=== PATIENT | female | born 1995 | race Caucasian/White ===

== ENCOUNTER 2016-04-26 10:28 | Emergency (ER) | payer SELFPAY ==
[2016-04-26 10:41] VITALS: O2SAT 98
--- NOTE | 2016-04-26 11:21 | ED.PDOC ---
History of Present Illness - General Chief Complaint: ENT Problem Stated Complaint: facial swelling, sore throat Time Seen by Provider: 04/26/16 11:18 Source: patient, RN notes reviewed, Vital Signs reviewed Exam Limitations: no limitations - History of Present Illness Initial Comments: This 21 y/o female was diagnosed with [place] 2 weeks ago. She had been feeling ok until 2 days ago when she started having some back pain and felt feverish again. She was fine yesterday, but woke up today with a sore throat, tonsils swollen, and feverish. She went back to work 4 days ago. Timing/Duration: unsure Severity: moderate Improving Factors: nothing Worsening Factors: eating Associated Symptoms: fever/chills, malaise Allergies/Adverse Reactions: Allergies NO KNOWN ALLERGY Allergy (Verified 04/26/16 10:41) Home Medications: Ambulatory Orders NK [NK] 04/26/16 Review of Systems - Review of Systems Constitutional: States: chills, fever, malaise, weakness EENTM: States: nose congestion, throat pain, throat swelling Respiratory: States: no symptoms reported Cardiology: States: no symptoms reported Gastrointestinal/Abdominal: States: abdominal pain - mild LUQ Genitourinary: States: no symptoms reported Musculoskeletal: States: no symptoms reported Skin: States: no symptoms reported Neurological: States: no symptoms reported Endocrine: States: no symptoms reported Hematologic/Lymphatic: States: no symptoms reported Past Medical History (General) - Patient Medical History Hx Stroke: No Hx Asthma: No Hx Congestive Heart Failure: No Hx Hypertension: No Hx Diabetes: No Hx MRSA: No Surgical History: no surgical history - Vaccination History Hx Influenza Vaccination: No Hx Pneumococcal Vaccination: No - Social History Hx Tobacco Use: No Hx Alcohol Use: No Hx Substance Use: No Hx Substance Use Treatment: No Hx Depression: No - Female History Patient is a Female of Child Bearing Age (10 -59 yrs old): Yes Patient : No Family Medical History - Family History Mother Family History: No Known Living Status: Still Living Physical Exam - Physical Exam General Appearance: Alert, Comfortable, Other - Mild distress Eye Exam: bilateral normal Ears, Nose, Throat: hearing grossly normal, normal ENT inspection, nasal congestion, pharyngeal erythema, tonsillar exudate, tonsillar swelling Neck: non-tender, full range of motion, supple, lymphadenopathy (R), lymphadenopathy (L) Respiratory: chest non-tender, lungs clear, normal breath sounds, no respiratory distress Cardiovascular/Chest: normal peripheral pulses, regular rate, rhythm, no edema, no murmur Gastrointestinal/Abdominal: normal bowel sounds, soft, tenderness - Mild tenderness in the LUQ, spleenomegaly - Mild Extremity: normal range of motion, non-tender, normal inspection, no pedal edema Neurologic: no motor/sensory deficits, alert, normal mood/affect, oriented x 3 Skin Exam: normal color, warm/dry Progress - Results/Orders Results/Orders: 04/26/16 10:35 Temperature 99.5 F Pulse Rate [ 98 H Left Radial] Respiratory 18 Rate Blood Pressure 119/79 [Left Arm] O2 Sat by Pulse 98 Oximetry 04/26/16 10:43 STREP SCREEN [GROUP A STREP SCREEN, RAPID] Stat Laboratory Results Group A Strep Rapid Negative (NEGATIVE) 04/26/16 10:43 Departure - Departure Clinical Impression: Mononucleosis syndrome Time of Disposition: 11:36 Disposition: Discharge to Home or Self Care Condition: Excellent Departure Forms: ED Discharge - Pt. Copy, Patient Portal Self Enrollment Instructions: DI for Mononucleosis-Adult, Mononucleosis Diet: resume usual diet Home Medications: Ambulatory Orders NK [NK] 04/26/16 Additional Instructions: Follow up if symptoms persist or worsen. No work until 04/30/2016.
[2016-04-26 11:55] VITALS: BP 102/67; TEMP 98.4
== END 2016-04-26 11:55 | disposition home or self-care (01) ==
LOC: ER 10:28
DX: B27.90 Infectious mononucleosis, unspecified without complication (principal)

== ENCOUNTER 2017-03-25 16:25 | Emergency (ER) | payer BC ==
[2017-03-25 16:38] VITALS: TEMP 97.9
[2017-03-25] MEDS ORDERED: AMOXICILLIN & POT CLAVULANATE 875 MG TAB PO ONE (18:03)
--- NOTE | 2017-03-25 18:07 | ED.PDOC ---
History of Present Illness - General Chief Complaint: ENT Problem Time Seen by Provider: 03/25/17 16:32 Source: patient Exam Limitations: no limitations - History of Present Illness Initial Comments: 2 D SORE THROAT. Timing/Duration: abrupt Severity: severe EENT Location: throat Prearrival Treatment: over the counter meds Improving Factors: nothing Allergies/Adverse Reactions: Allergies NO KNOWN ALLERGY Allergy (Verified 04/26/16 10:41) Home Medications: Ambulatory Orders Amoxicillin & Pot Clavulanate [Augmentin] 875 mg PO BID #14 tab 03/25/17 Review of Systems - Review of Systems Constitutional: Denies: chills, diaphoresis, fever EENTM: States: throat pain. Denies: ear pain, nose congestion, mouth pain Respiratory: Denies: cough, short of breath Cardiology: States: no symptoms reported Gastrointestinal/Abdominal: States: no symptoms reported Genitourinary: States: no symptoms reported Musculoskeletal: States: no symptoms reported Skin: States: no symptoms reported Neurological: States: no symptoms reported Endocrine: States: no symptoms reported Hematologic/Lymphatic: States: no symptoms reported All other Systems: Reviewed and Negative Past Medical History (General) - Patient Medical History Hx Seizures: No Hx Stroke: No Hx Asthma: No Hx Cardiac Disorders: No Hx Congestive Heart Failure: No Hx Hypertension: No Hx Diabetes: No Hx MRSA: No Surgical History: no surgical history - Vaccination History Hx Influenza Vaccination: No Hx Pneumococcal Vaccination: No - Social History Hx Tobacco Use: No Hx Alcohol Use: No Hx Substance Use: No Hx Substance Use Treatment: No Hx Depression: No - Female History Patient : No Family Medical History - Family History Mother Family History: No Known Living Status: Still Living Physical Exam - Physical Exam General Appearance: Alert, Well Hydrated Eye Exam: bilateral normal Ear Exam: bilateral ear: auricle normal, canal normal, TM normal Nasal Exam: normal inspection Throat Exam: tonsillar exudate, tonsillar swelling Neck: full range of motion, supple, lymphadenopathy (L) Cardiovascular/Respiratory: regular rate, rhythm, no M/R/G, normal breath sounds , no respiratory distress Abdominal Exam: non-tender Neurologic: alert, normal mood/affect Skin Exam: normal color, warm/dry Progress - Results/Orders Results/Orders: RAPID STREP NEG. I THINK IT IS A FALSE NEG RESULT BECAUSE PT HAS 3/4 CENTOR CRITERIA: POS LAD, POS TONSILAR ENLARGEMENT AND EXUDATES, ABSENCE OF COUGH. SHE HAS NO OTHER URI SX OTHER THAN TONSILAR PAIN, SO IT DOES NOT FIT PICTURE OF VIRAL URI. THUS I RX'D AUGMENTING X 7 D. Departure - Departure Clinical Impression: Streptococcal pharyngitis, Sore throat Disposition: Discharge to Home or Self Care Condition: Good Departure Forms: ED Discharge - Pt. Copy, Patient Portal Self Enrollment, Work Release Form Instructions: DI for Strep Throat Diet: resume usual diet Activity: increase activity as tolerated Referrals: JOANNA RODRIGUEZ IV, STAFF ASSISTANT [Primary Care Provider] - 1-2 Weeks Prescriptions: Amoxicillin & Pot Clavulanate [Augmentin] 875 mg PO BID #14 tab Home Medications: Ambulatory Orders Amoxicillin & Pot Clavulanate [Augmentin] 875 mg PO BID #14 tab 03/25/17
[2017-03-25 18:22] VITALS: BP 100/63; O2SAT 95
== END 2017-03-25 18:19 | disposition home or self-care (01) ==
LOC: ER 16:25
DX: J02.0 Streptococcal pharyngitis (principal)

== ENCOUNTER 2020-01-11 20:45 | Emergency (ER) | payer SELFPAY ==
--- NOTE | 2020-01-11 21:09 | ED.PDOC ---
History of Present Illness - General Time Seen by Provider: 01/11/20 20:48 - History of Present Illness Initial Comments: 24 female comes in with one day of vaginal bleeding and cramping. states one month ago got depo shot. Today noticed some bleeding. took a te st and thought it looked "slightly" positive, but wasn't sure. No nausea/vomiting. no diarrhea or constipation. no black or bloody bm. no dizziness, shortness of breath or chest pain. no fevers. Allergies/Adverse Reactions: Allergies NO KNOWN ALLERGY Allergy (Verified 04/26/16 10:41) Review of Systems - Review of Systems Constitutional: Denies: chills, fever EENTM: Denies: blurred vision, throat pain, mouth pain Respiratory: Denies: cough, short of breath Cardiology: Denies: chest pain, palpitations Gastrointestinal/Abdominal: States: abdominal pain. Denies: diarrhea, nausea, vomiting Genitourinary: States: see HPI Musculoskeletal: Denies: back pain, muscle pain Neurological: Denies: headache, numbness, paresthesia, tingling, tremors, weakne ss Hematologic/Lymphatic: Denies: blood clots, easy bleeding, easy bruising Past Medical History (General) - Patient Medical History Hx Seizures: No Hx Stroke: No Hx Asthma: No Hx Cardiac Disorders: No Hx Congestive Heart Failure: No Hx Hypertension: No Hx Diabetes: No Hx MRSA: No - Vaccination History Hx Influenza Vaccination: No Hx Pneumococcal Vaccination: No - Social History Hx Tobacco Use: No Hx Alcohol Use: No Hx Substance Use: No Hx Substance Use Treatment: No Hx Depression: No - Female History Patient : No Family Medical History - Family History Mother Family History: No Known Living Status: Still Living Physical Exam - Physical Exam General Appearance: Alert, Comfortable, No apparent distress, Well Developed, Well Groomed, Well Hydrated, Well Nourished Eyes, Ears, Nose, Throat Exam: PERRL/EOMI, normal ENT inspection, TMs normal Neck: non-tender, full range of motion, supple, normal inspection Cardiovascular/Respiratory: regular rate, rhythm, no M/R/G, normal peripheral pulses, no JVD, normal breath sounds, no respiratory distress Gastrointestinal/Abdominal: non tender, soft, no organomegaly, no pulsatile mass Rectal Exam: deferred Pelvic Exam: external exam normal, speculum exam normal, bimanual exam normal, no cerv. motion tender, no masses Back Exam: normal inspection, no CVA tenderness, no vertebral tenderness Extremity: normal range of motion, non-tender, normal inspection, no pedal edema Neurologic: no motor/sensory deficits, alert, normal mood/affect, oriented x 3 Skin Exam: normal color, warm/dry Progress - Progress Progress: 01/11/20 21:39 partial ddx: breakthrough bleeding, threatened/incomplete , ectopic. Patient resting comfortably. no evidence of bleeding on pelvic exam. Os is closed. no CMT. Will check CBC, CMP and HCG. Will also check UA. If HCG positive will send for US. - Results/Orders Results/Orders: The data reviewed when caring for this patient included: nurse notes, prior records, etc. The history and assessments from nurses notes were reviewed and considered, and the patient's home medication list was also reviewed and considered. My assessment and the results of testing completed here in the ED were discussed with the patient. All questions were answered, and she express understanding of my assessment and the plan. She have been instructed to return if their symptoms worsen, and have been asked to follow up with their primary care physician to recheck today's presenting complaint. Return precautions given.vss, patient discharged home in stable condition. Hui Mcfarland DO #[id number] 01/11/20 21:30 SURESWAB VAGINOSIS/VAGINITIS Stat 01/11/20 21:51 Discharge Stat Laboratory Results WBC 9.2 K/mm3 (4.8-10.8) 01/11/20 21:10 RBC 4.49 M/mm3 (4.20-5.40) 01/11/20 21:10 Hgb 13.1 gm/dL (12.0-16.0) 01/11/20 21:10 Hct 38.0 % (36.0-47.0) 01/11/20 21:10 MCV 84.5 fl (81.0-99.0) 01/11/20 21:10 MCH 29.2 pg (27.0-31.0) 01/11/20 21:10 MCHC 34.5 g/dL (33.0-37.0) 01/11/20 21:10 RDW 12.8 % (11.5-14.5) 01/11/20 21:10 Plt Count 278 K/mm3 (130-400) 01/11/20 21:10 MPV 9.0 fl (7.40-10.4) 01/11/20 21:10 Absolute Neuts (auto) 4.60 K/uL (1.8-6.8) 01/11/20 21:10 Absolute Lymphs (auto) 3.80 K/uL (1.0-3.4) H 01/11/20 21:10 Absolute Monos (auto) 0.60 K/uL (0.2-0.8) 01/11/20 21:10 Absolute Eos (auto) 0.10 K/uL (0.0-0.4) 01/11/20 21:10 Absolute Basos (auto) 0.10 K/uL (0.0-0.1) 01/11/20 21:10 Neutrophils % 50.0 % (42.0-78.0) 01/11/20 21:10 Lymphocytes % 41.6 % (20.0-50.0) 01/11/20 21:10 Monocytes % 7.0 % (2.0-9.0) 01/11/20 21:10 Eosinophils % 0.8 % (1.0-5.0) L 01/11/20 21:10 Basophils % 0.6 % (0.0-2.0) 01/11/20 21:10 PT 10.1 SECONDS (9.0-10.9) 01/11/20 21:10 INR 1.02 (0.9-1.15) 01/11/20 21:10 PTT (SP) 25.3 SECONDS (21.8-31.6) 01/11/20 21:10 Beta HCG, Quant < 0.6 mIU/mL (0-4.9) 01/11/20 21:10 Urine Color Yellow (Yellow) 01/11/20 21:30 Urine Appearance Clear (Clear) 01/11/20 21:30 Urine pH 6.0 (4.5-7.8) 01/11/20 21:30 Ur Specific [place] 1.010 (1.005-1.030) 01/11/20 21:30 Urine Protein Negative mg/dL 01/11/20 21:30 Urine Glucose (UA) Negative mg/dL (Negative) 01/11/20 21:30 Urine Ketones Negative mg/dL (NEGATIVE) 01/11/20 21:30 Urine Blood Negative (Negative) 01/11/20 21:30 Urine Nitrite Negative 01/11/20 21:30 Urine Bilirubin Negative (NEGATIVE) 01/11/20 21:30 Urine Urobilinogen 0.2 mg/dL (0.2-1.0) 01/11/20 21:30 Ur Leukocyte Esterase Negative (Negative) 01/11/20 21:30 Urine RBC 0 /hpf 01/11/20 21:30 Urine WBC 0-1 /hpf 01/11/20 21:30 Ur Epithelial Cells 1-3 /hpf 01/11/20 21:30 Urine Bacteria 0 01/11/20 21:30 Departure - Departure Clinical Impression: Dysfunctional uterine bleeding Time of Disposition: 21:43 Disposition: Discharge to Home or Self Care Condition: Good Instructions: Heavy Periods (DC), Bleeding Between Periods Diet: resume usual diet
[2020-01-11 22:02] VITALS: BP 108/80; TEMP 97.9; O2SAT 98
== END 2020-01-11 22:02 | disposition home or self-care (01) ==
LOC: ER 20:45
DX: N93.8 Other specified abnormal uterine and vaginal bleeding (principal)